=== PATIENT | male | born 1990 | race Two or more races ===

== ENCOUNTER 2023-04-22 08:53 | Emergency (ER) | payer OTHER ==
[~2023-04-22] VITALS: Ht 170.2 cm; Wt 70.8 kg
[2023-04-22] MEDS ORDERED: IBUPROFEN 600 MG TABLET PO ONE (09:30)
[2023-04-22] MEDS ORDERED: CYCLOBENZAPRINE 10 MG TABLET PO ONE (09:30)
[2023-04-22] MEDS ORDERED: CYCL5TAB PO (09:36)
[2023-04-22] MEDS ORDERED: CYCLOBENZAPRINE 10 MG TABLET ONE (09:39)
[2023-04-22] MEDS ORDERED: IBUPROFEN 600 MG TABLET ONE (09:40)
[2023-04-22 10:10] VITALS: BP 112/77; TEMP 98.3; O2SAT 99
== END 2023-04-22 10:11 | disposition home or self-care (01) ==
LOC: ER 08:56
DX: M54.50 Low back pain, unspecified (principal); V43.52XA Car driver injured in collision with other type car in traffic accident, initial encounter; Y93.89 Activity, other specified; Y92.89 Other specified places as the place of occurrence of the external cause; Y99.8 Other external cause status